=== PATIENT | female | born 1985 | race African-American/Black ===

== ENCOUNTER 2017-03-31 20:18 | Emergency (ER) | payer OTHER, SELFPAY ==
[2017-03-31] MEDS ORDERED: Ibuprofen 800 MG TAB ONE (23:17)
[2017-03-31 23:24] LABS: Bilirubin Negative (Negative); Blood, Urine Negative (Negative); Glucose, Urine (Dipstick) Negative (Negative); Ketone, Urine Negative (Negative); Nitrite Negative (Negative); Protein, Urine (Dipstick) Negative (Neg-Trace)
[2017-03-31 23:26] LABS: Bacteria/HPF 4+ HPF (None Seen); Hyaline Casts/LPF 4-6 HYALINE CAST LPF (0-3 Hyaline); RBC/HPF 0-3 HPF (0-3)
--- NOTE | 2017-04-01 09:10 | ULT ---
PRELIMINARY REPORT/[facility]/EMERGENCY AFTER HOURS PROCEDURE: EXAM: US Pelvis Complete CLINICAL HISTORY: 31 years old, female; Pain; Other: Llq pain TECHNIQUE: Real-time pelvic ultrasound (complete) with image documentation. COMPARISON: No relevant prior studies available. FINDINGS: Uterus/cervix: Unremarkable. Normal endometrial stripe thickness. No myometrial mass. Right ovary: Right ovary not visualized. Left ovary: 4 cm left ovarian cyst. Remainder of the left ovary is normal with normal Doppler signal . Normal blood flow. Free fluid: No free fluid. IMPRESSION: 4 cm left ovarian cyst. EXAM: US Pelvis, Transvaginal EXAM DATE/TIME: Exam ordered 03/31/2017 11:47 PM CLINICAL HISTORY: 31 years old, female; Pain; Other: Llq pain TECHNIQUE: Real-time transvaginal pelvic ultrasound (complete) with image documentation. Transvaginal imaging w as used for better evaluation of the endometrium and adnexa. COMPARISON: No relevant prior studies available. FINDINGS: Uterus/cervix: IUD present. Normal endometrial stripe thickness. No myometrial mass. Right ovary: Right ovary is normal with normal Doppler signal. Normal blood flow. Left ovary: Left ovary not visualized transvaginally. Free fluid: Physiologic amount of free fluid in the posterior pelvic cul-de-sac. IMPRESSION: No acute findings. Thank you for allowing us to participate in the care of your patient. Dictated and Authenticated by: Hussein Gonzalez MD 04/01/2017 12:52 AM Central Time ([place] \T\ [place]) FINAL REPORT PELVIC ULTRASOUND WITH DOPPLER: (TRANSABDOMINAL, TRANSVAGINAL, ESCAMILLA SCALE, COLOR FLOW, AND SPECTRAL DOPPLER) DATE: 03/31/17 FINDINGS/IMPRESSION: I agree with the preliminary report given by Dr. Hussein Gonzalez of [facility]. POS: [facility]
== END 2017-04-01 02:15 | disposition home or self-care (01) ==
LOC: ERS 20:18
DX: N76.0 Acute vaginitis (principal); F32.9 Major depressive disorder, single episode, unspecified; F41.9 Anxiety disorder, unspecified; F17.210 Nicotine dependence, cigarettes, uncomplicated; J45.909 Unspecified asthma, uncomplicated
CPT/HCPCS: 76856; 81003; 81015; 87480; 87491; 87510; 87591; 87660

== ENCOUNTER 2023-08-29 08:01 | Emergency (ER) | payer SELFPAY ==
[2023-08-29] MEDS ORDERED: Ibuprofen 200 MG TAB ONE (09:20)
[2023-08-29 10:11] LABS: Influenza A by NAA Not Detected (NotDetected); Influenza B by NAA Not Detected (NotDetected); SARS-CoV-2 NAA Rapid Test Not Detected (NotDetected)
== END 2023-08-29 10:25 | disposition home or self-care (01) ==
LOC: ERS 08:01
DX: J06.9 Acute upper respiratory infection, unspecified (principal); J45.901 Unspecified asthma with (acute) exacerbation; F17.210 Nicotine dependence, cigarettes, uncomplicated
CPT/HCPCS: 99283